=== PATIENT | female | born 1940 | race Caucasian/White ===

== ENCOUNTER → 2022-05-06 10:38 | Outpatient (BNVA) | payer MEDICARE, MEDICAID, SELFPAY | PROVIDERS: Family Provider Nurse Practitioner Family; PCP Registered Nurse; Visit Provider Registered Nurse | DX: E03.9 Hypothyroidism, unspecified (principal); N81.10 Cystocele, unspecified | CPT/HCPCS: 80053; 84443; 85025 ==

== ENCOUNTER 2022-09-01 10:52 | Day surgery (SDC) | payer MEDICARE, SELFPAY ==
--- NOTE | 2022-08-28 13:32 | ECG_ITS ---
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 Measurements Intervals Ferguson Rate: 71 P: 38 AR: 157 QRS: -17 QRSD: 76 T: 57 QT: 371 QTc: 405 Interpretive Statements SINUS RHYTHM Compared to ECG 08/04/2018 10:46:59 T-wave abnormality no longer present Electronically Signed On 08-28-2022 22:19:11 [employer] by Korin Abebe M.D. [id number]
[2022-08-28 13:44] LABS: Basophils % 0.5 %; Eosinophils # 0.1 10^3/uL (0.0-0.8); Eosinophils % 1.1 %; Hematocrit 42.8 % (37.0-47.0); Hemoglobin 13.9 g/dL (11.5-15.3); Lymphocytes # 1.4 10^3/uL (0.8-4.8); Lymphocytes % 24.4 %; Mean Corpuscular HGB Conc 32.5 g/dL (30.0-36.0); Mean Corpuscular Hemoglobin 29.2 pg (28.0-34.0); Mean Corpuscular Volume 89.9 fl (81-99); Mean Platelet Volume 10.3 fL (7.4-10.4); Monocytes # 0.5 10^3/uL (0.2-0.9); Monocytes % 7.9 %; Neutrophils # 3.75 10^3/uL (1.8-7.7); Neutrophils % 65.9 %; Nucleated Red Blood Cells % 0 %; Platelet Count 254 10^3/cmm (130-400); Red Blood Count 4.76 10^6/uL (4.1-5.3); Red Cell Distribution Width 13.2 % (12.1-15.1); White Blood Count 5.7 10^3/uL (4.0-10.0)
--- NOTE | 2022-08-28 13:47 | ANES.PREANE2 ---
Pre-Anesthetic Assessment Height/Weight: Height 1.45 m Weight 61.235 kg Preop Diagnosis: uterovaginal prolapse, bladder prolapse Operation Date: 09/01/22 12:55 Proposed Procedures p Colpocliesis 51284, Sling 65400, Perineorrhaphy 92446 N81.3 Laparoscopic assisted vaginal hysterectomy and bilateral salpingo-oophorectomy 42621(Not Applicable) - Eilzabeth Stuart MD s Sling(Not Applicable) - Elizabeth Stuart MD s Perineorrhaphy(Not Applicable) - Elizabeth Stuart MD s Laparoscopic assisted vaginal hysterectomy and bilateral salpingo-oophorectomy 58533(Not Applicable) - Elizabeth Stuart MD Familial anesthetic complications: None Social No alcohol and No tobacco Exam alert, oriented x 3, clear to auscultation bilaterally and regular rate & rhythm Airway Mallampati: Class II Dentition: false Pulmonary None reported CV/HEM None reported None reported Hepatic None reported GI None reported Metabolic Thyroid Disease Musc/skel None reported Neuropsych None reported Anesthetic Plan ASA status: 2 Anesthesia: General Risk of > 500 ml blood loss (7ml/kg in children): No Medications/Allergies Home Medications Medication Instructions Recorded Confirmed Last Taken Type zinc sulfate 50 mg zinc (220 mg) 50 mg PO DAILY PRN Cold Symptoms 07/06/22 08/28/22 Unknown History capsule levothyroxine 25 mcg capsule 25 mcg PO DAILY 08/27/22 08/28/22 08/28/22 History Allergies Allergy/AdvReac Type Severity Reaction Status Date / Time No Known Allergies Allergy Verified 08/27/22 14:02 [facility] Anesthesia Medical History Hypothyroidism Surgical History History of left hip replacement 2019 Family History Mother Hypertension Sister Hypertension Denies family history of Colon cancer Ovarian cancer Diabetes Heart disease Hypercholesteremia Breast cancer Uterine cancer Thyroid disease Stroke Data Anesthesia 08/28/22 13:30 08/28/22 13:30 Short CBC 08/28/22 Range/Units 13:30 WBC 5.7 (4.0-10.0) 10^3/uL Hgb 13.9 (11.5-15.3) g/dL Hct 42.8 (37.0-47.0) % MCV 89.9 (81-99) fl Plt Count 254 (130-400) 10^3/cmm Neut % (Auto) 65.9 % Neut # (Auto) 3.75 (1.8-7.7) 10^3/uL Cardiac Studies: No Data to Display
[2022-08-28 14:00] LABS: Blood Urea Nitrogen 16 mg/dL (8-23); Calcium 9.4 mg/dL (8.5-10.5); Carbon Dioxide 28 mmol/L (22-29); Chloride 101 mmol/L (98-107); Creatinine Clr Calc Pharmacy 52.4112; Glucose 110 mg/dL (65-115); Osmolality Calculated 288 mOsm/kg (285-295); Sodium 138 mmol/L (136-145)
[2022-09-01 11:07] VITALS: BP 115/59; PULSE 86; TEMP 36.3; O2SAT 96
[2022-09-01] MEDS: sodium chloride 0.9% 1,000 ML 30 ML IV (11:30)
[2022-09-01] MEDS: gabapentin 300 mg Capsule PO (11:31)
[2022-09-01] MEDS: CELEcoxib 200 mg Capsule 400 MG PO (11:31)
[2022-09-01] MEDS: acetaminophen 1,000 MG/100 ML PIGGYBACK 400 MG IV (11:31)
[2022-09-01] MEDS: scopolamine 1.5 Patch 1 PATCH TRANSDERMA (11:31)
[2022-09-01] MEDS: phenazopyridine 100 mg Tablet 200 MG PO (11:32)
--- NOTE | 2022-09-01 14:02 | W.PM.OPSUD ---
Surgery/Procedure H&P Update DATE OF PROCEDURE: September 01, 2022 DATE H&P PERFORMED: 08/27/22 H&P UPDATE INFORMATION: I have reviewed H&P completed within last 30 days, I have examined patient prior to procedure and Changes to prior documentation as noted here CHANGES TO PREVIOUS DOCUMENTATION: Planned procedure is Vaginal hysterectomy, if possible. PREOP DIAGNOSIS: uterovaginal prolapse, bladder prolapse PLANNED PROCEDURE: Operation Date: 09/01/22 12:35 Proposed Procedures p Colpocliesis 56323, Sling 99342, Perineorrhaphy 95456 N81.3 Laparoscopic assisted vaginal hysterectomy and bilateral salpingo-oophorectomy 27900(Not Applicable) - Elizabeth Stuart MD s Sling(Not Applicable) - Elizabeth Stuart MD s Perineorrhaphy(Not Applicable) - Elizabeth Stuart MD s Laparoscopic assisted vaginal hysterectomy and bilateral salpingo-oophorectomy 97925(Not Applicable) - Elizabeth Stuart MD Related Problem List Diagnoses (1) Uterovaginal prolapse, complete: (2) Bladder prolapse, female, acquired:
--- NOTE | 2022-09-01 14:19 | P.ANESUD_ITS ---
Pre-Anesthetic Update Pre-Anesthetic Assessment: Date of Surgery/Procedure: 09/01/22 Preop Leti gnosis: uterovaginal prolapse, bladder prolapse Proposed Procedure: Operation Date: 09/01/22 12:35 Proposed Procedures p Colpocliesis 34969, Sling 85909, Perineorrhaphy 08951 N81.3 Laparoscopic assisted vaginal hysterectomy and bilateral salpingo-oophorectomy 77821(Not Applicable) - Elizabeth Stuart MD s Sling(Not Applicable) - Elizabeth Stuart MD s Perineorrhaphy(Not Applicable) - Elizabeth Stuart MD s Laparoscopic assisted vaginal hysterectomy and bilateral salpingo-oophorectomy 24240(Not Applicable) - Elizabeth Stuart MD Any changes to Pre-Anesthetic Assessment?: No Last Intake: Intake Last Liquid Date 08/31/22 Last Liquid Time 18:00 Last Solid Date 08/31/22 Last Solid Time 18:00 Vitals: Temperature 97.3 F L 09/01/22 11:07 Temperature Source Temporal Artery S can 09/01/22 11:07 Pulse Rate 86 09/01/22 11:07 Blood Pressure 115/59 09/01/22 11:07 Blood Pressure Santa n 77 09/01/22 11:07 Pulse Oximetry 96 09/01/22 11:07 Oxygen Delivery Me thod 09/01/22 11:07 Exam: Pre-Anes Outpt Exam: alert, oriented x 3, clear to auscultation bilaterally and regular rate & rhythm Cardiac Studies: No Data to Display
--- NOTE | 2022-09-03 10:00 | PM.OP ---
Operative Report Date of procedure: September 03, 2022 Pre-op diagnosis: Preop Diagnosis uterovaginal prolapse, bladder prolapse Procedure: procedure needed to be rescheduled due to another patient returning to the operating room. I will have our office reschedule her
== END 2022-09-01 15:38 | disposition home or self-care (01) ==
LOC: OR 10:54
PROVIDERS: PCP Registered Nurse; Visit Provider Obstetrics & Gynecology
PROC: (CPT 57120; principal; 2022-09-01 12:25)
PROC: (CPT 57288; 2022-09-01 12:25)
PROC: 0HQ9XZZ Repair Perineum Skin, External Approach (ICD-10-PCS; 2022-09-01 12:25)
PROC: 0UT9FZZ Resection of Uterus, Via Natural or Artificial Opening With Percutaneous Endoscopic Assistance (ICD-10-PCS; 2022-09-01 12:25)
DX: N81.3 Complete uterovaginal prolapse (principal); Z53.8 Procedure and treatment not carried out for other reasons; E03.9 Hypothyroidism, unspecified
CPT/HCPCS: 36415; 80048; 85025; 86850; 86900; 93005; J0131; J1100; J1885; J2405; J2704; J2710; J3010; J3490; J7030

== ENCOUNTER 2022-09-29 10:10 | Observation (INO) | payer MEDICARE, SELFPAY ==
[2022-09-25 09:09] VITALS: BMI 29.2
--- NOTE | 2022-09-25 09:29 | ANES.PREANE2 ---
Pre-Anesthetic Assessment Height/Weight: Height 1.45 m Weight 61.235 kg Preop Diagnosis: uterovaginal prolapse Operation Date: 09/29/22 09:00 Proposed Procedures p Laparoscopic assisted vaginal hysterectomy and bilateral salpingo-oophorectomy 16355,N81.3(Not Applicable) - Elizabeth Stuart MD s Laparoscopic Salpingo Oophorectomy(Bilateral) - Elizabeth Stuart MD s [Colpocliesis 97220,(Not Applicable) - Elizabeth Stuart MD p Sling 45424(Not Applicable) - Elizabeth Stuart MD s Perineorrhaphy 25022(Not Applicable) - Elizabeth Stuart MD Familial anesthetic complications: None Social No alcohol and No tobacco Exam alert, oriented x 3, clear to auscultation bilaterally and regular rate & rhythm Airway Mallampati: Class I Dentition: false and partials Pulmonary None reported CV/HEM None reported None reported Hepatic None reported GI None reported Metabolic Thyroid Disease Musc/skel Lower Back Pain and Osteoarthritis/DJD Neuropsych None reported Anesthetic Plan ASA status: 2 Anesthesia: General Risk of > 500 ml blood loss (7ml/kg in children): No Medications/Allergies Home Medications Medication Instructions Recorded Confirmed Last Taken Type levothyroxine 25 mcg capsule 25 mcg PO DAILY 08/27/22 09/25/22 09/25/22 History Allergies Allergy/AdvReac Type Severity Reaction Status Date / Time No Known Allergies Allergy Verified 09/25/22 07:56 [facility] Anesthesia Medical History Hypothyroidism Surgical History History of left hip replacement 2019 Family History Mother Hypertension Sister Hypertension Denies family history of Colon cancer Ovarian cancer Diabetes Heart disease Hypercholesteremia Breast cancer Uterine cancer Thyroid disease Stroke Data Anesthesia Cardiac Studies: No Data to Display
[2022-09-25 10:23] LABS: Basophils % 0.7 %; Eosinophils # 0.1 10^3/uL (0.0-0.8); Eosinophils % 2.1 %; Hematocrit 43.7 % (37.0-47.0); Hemoglobin 14.1 g/dL (11.5-15.3); Lymphocytes # 1.1 10^3/uL (0.8-4.8); Mean Corpuscular HGB Conc 32.3 g/dL (30.0-36.0); Mean Corpuscular Volume 89.7 fl (81-99); Mean Platelet Volume 10.6 fL (7.4-10.4); Monocytes # 0.6 10^3/uL (0.2-0.9); Monocytes % 9.9 %; Neutrophils # 3.79 10^3/uL (1.8-7.7); Neutrophils % 66.9 %; Nucleated Red Blood Cells % 0 %; Platelet Count 262 10^3/cmm (130-400); Red Blood Count 4.87 10^6/uL (4.1-5.3); Red Cell Distribution Width 13.2 % (12.1-15.1); White Blood Count 5.7 10^3/uL (4.0-10.0)
[2022-09-25 10:38] LABS: Anion Gap 13.1 (5-19); Blood Urea Nitrogen 13 mg/dL (8-23); Calcium 9.4 mg/dL (8.5-10.5); Carbon Dioxide 30 mmol/L (22-29); Chloride 100 mmol/L (98-107); Creatinine Clr Calc Pharmacy 52.4112; Glucose 97 mg/dL (65-115); Osmolality Calculated 288 mOsm/kg (285-295); Potassium 4.1 mmol/L (3.5-5.1); Sodium 139 mmol/L (136-145)
[2022-09-29] VITALS (14 sets, daily range): BP systolic 117–144; BP diastolic 62–83; PULSE 57–91; RESP 12–18; TEMP 36.1–36.6; O2SAT 90–99
[2022-09-29] MEDS: sodium chloride 0.9% 1,000 ML 30 ML IV (06:25)
[2022-09-29] MEDS: acetaminophen 1,000 MG/100 ML PIGGYBACK 400 MG IV (06:25)
[2022-09-29] MEDS: scopolamine 1.5 Patch 1 PATCH TRANSDERMA (06:39)
[2022-09-29] MEDS: CELEcoxib 200 mg Capsule 400 MG PO (06:40)
[2022-09-29] MEDS: gabapentin 300 mg Capsule PO (06:40)
[2022-09-29] MEDS: phenazopyridine 100 mg Tablet 200 MG PO (06:42)
--- NOTE | 2022-09-29 06:47 | P.ANESUD_ITS ---
Pre-Anesthetic Update Pre-Anesthetic Assessment: Date of Surgery/Procedure: 09/29/22 Preop Leti gnosis: uterovaginal prolapse Proposed Procedure: Operation Date: 09/29/22 07:00 Proposed Procedures p Laparoscopic assisted vaginal hysterectomy and bilateral salpingo-oophorectomy 70243,N81.3(Not Applicable) - Elizabeth Stuart MD s Laparoscopic Salpingo Oophorectomy(Bilateral) - Elizabeth Stuart MD s [Colpocliesis 91978,(Not Applicable) - Elizabeth Stuart MD p Sling 24471(Not Applicable) - Elizabeth Stuart MD s Perineorrhaphy 74618(Not Applicable) - Elizabeth Stuart MD Any changes to Pre-Anesthetic Assessment?: No Last Intake: 8 hrs Labs Last 48hrs: Short CBC 09/25/22 Range/Units 09:15 WBC 5.7 (4.0-10.0) 10^3/ uL Hgb 14.1 (11.5-15.3) g/dL Hct 43.7 (37.0-47.0) % MCV 89.7 (81-99) fl Plt Count 262 (130-400) 10^3/c mm Neut % (Auto) 66.9 % Neut # (Auto) 3.79 (1.8-7.7) 10^3/u L BMP 09/25/22 09:15 Sodium 139 Potassium 4.1 Chloride 100 Carbon Dioxide 30 H BUN 13 Creatinine 0.8 Glucose 97 Calcium 9.4 Vitals: Temperature 97.0 F L 09/29/22 06:21 Temperature Source Temporal Artery S can 09/29/22 06:21 Pulse Rate 91 09/29/22 06:21 Respiratory Rate 18 09/29/22 06:21 Blood Pressure 141/68 09/29/22 06:21 Blood Pressure Santa n 92 09/29/22 06:21 Pulse Oximetry 95 09/29/22 06:21 Oxygen Delivery Me thod 09/29/22 06:22 Exam: Pre-Anes Outpt Exam: alert, oriented x 3, clear to auscultation bilaterally and regular rate & rhythm Cardiac Studies: No Data to Display
--- NOTE | 2022-09-29 07:04 | W.PM.OPSUD ---
Surgery/Procedure H&P Update DATE OF PROCEDURE: September 29, 2022 DATE H&P PERFORMED: 09/25/22 H&P UPDATE INFORMATION: I have reviewed H&P completed within last 30 days, I have examined patient prior to procedure and No changes to prior documentation PREOP DIAGNOSIS: uterovaginal prolapse PLANNED PROCEDURE: Operation Date: 09/29/22 07:00 Proposed Procedures p Laparoscopic assisted vaginal hysterectomy and bilateral salpingo-oophorectomy 69317,N81.3(Not Applicable) - Elizabeth Stuart MD s Laparoscopic Salpingo Oophorectomy(Bilateral) - Elizabeth Stuart MD s [Colpocliesis 65458,(Not Applicable) - Elizabeth Stuart MD p Sling 87491(Not Applicable) - Elizabeth Stuart MD s Perineorrhaphy 41937(Not Applicable) - Elizabeth Stuart MD Related Problem List Diagnoses (1) Uterovaginal prolapse, complete: (2) Bladder prolapse, female, acquired:
[2022-09-29] MEDS: ceFAZolin 2,000 MG in sodium chloride 0.9% (plus) 50 ML 100 MG IV ×2 (07:05→17:34)
[2022-09-29] MEDS: vasopressin 20 unit/mL INJ INJECTION (07:50)
--- NOTE | 2022-09-29 10:13 | PM.OP ---
Operative Report Date of procedure: September 29, 2022 Pre-op diagnosis: Preop Diagnosis uterovaginal prolapse Post-op diagnosis: same Post-op findings: resolution of the uterovaginal prolapse Procedure done: TVH, BSO, colpocleisis, perineorrhaphy Specimens removed/disposition: uterus, tubes, ovaries to pathology Surgeon: Elizabeth Stuart Anesthesia: General Estimated blood loss (mL): 50 IV fluids (mL): 1,400 Urine output (mL): 1,000 Complications: none Findings: complete procidencia Condition: stable Disposition: PACU Procedure: The patient was taken to the operating room where general anesthesia was administered and found to be adequate. She was prepped and draped in the normal sterile fashion in the dorsal lithotomy position in [facility]. A Yan catheter was placed. A weighted speculum was placed into the vagina and the anterior and posterior lip of the cervix was grasped with a Taylor tenaculum. 10 mL of dilute Pitressin was injected at the vesicovaginal junction. A circumferential incision was made at the vesicovaginal junction and the vaginal mucosa reflected cephalad. The posterior peritoneum was entered sharply with the Metzenbaum scissors and the long weighted speculum replaced. Using the Hamida clamps the uterosacral ligaments were clamped cut and suture-ligated. Then sequentially the uterine arteries and cardinal ligaments were clamped cut and suture-ligated. The uterus was delivered. The utero-ovarian ligaments were clamped cut and suture-ligated bilaterally and the specimen was removed. The infundibulopelvic ligament was clamped, cut and suture ligated bilaterally. The peritoneum was closed with a pursestring using 2-0 Vicryl. The vaginal cuff was closed with 0 Vicryl in a running locked pattern incorporating the uterosacral ligaments into the lateral aspects of the vaginal cuff. The Yan catheter was removed and the cystoscope advanced into the bladder. The patient was given pyridium in preop and bilateral spill was noted. There were no injuries or deficits noted in the bladder. The cystoscope was removed and the Yan was replaced. Attention was then turned to the colpocliesis portion. A square was marked on the anterior and posterior. Using a 15 blade knife, an incision was made posteriorly and the vaginal tissue elevated. The rectum was resected off of the vaginal mucosa. The incision was continued around the previously marked area resecting the rectum as I went, until the vaginal mucosa was removed. Attention was then turned anteriorly. In the same fashion, the vaginal mucosa was removed after the bladder was resected away from it. The anterior and posterior tissues were then reapproximated, anterior to posterior on both sides, forming vaginal gutters. Then, the proximal edge of the vaginal cuff were reapproximated, anterior to posterior, in interrupted sutures. Finally, the distal vaginal tissue was brought anterior to posterior in interrupted sutures, securing the vagina inside. Attention was then turned to the perineorrhphy. Allis clamps were placed on the posterior fourchette. A 3 cm wedge of the fourchette was removed. This was repaired in the usual fashion with O-vicryl. Vaginal packing was placed. The patient tolerated the procedure well. Sponge, lap and needle counts were correct times three. She was taken to the recovery room in stable condition.
[2022-09-29] MEDS: ketorolac 30 mg/mL INJ IVP ×3 (11:25→23:50)
[2022-09-29] MEDS: dextrose 5%-lactated ringers 1,000 ML 125 ML IV ×2 (11:26→23:50)
--- NOTE | 2022-09-29 14:21 | ANE.PACU2 ---
Inpatient post-anesthesia follow up: Airway intact: Yes Vital signs: Temperature 97.7 F Pulse Rate 57 Respiratory Rate 13 Blood Pressure 127/70 Pulse Oximetry 91 Oxygen Delivery Me thod Nasal Cannula Oxygen Flow Rate 8 Fraction of Inspir ed Oxygen Hydration adequate: Yes Nausea and vomiting: No Pain level: 3 Mental status: Baseline
[2022-09-29] MEDS: ondansetron 2 mg/ML SDV 2 mL 4 MG IVP (17:34)
[2022-09-30] MEDS: ceFAZolin 2,000 MG in sodium chloride 0.9% (plus) 50 ML 100 MG IV (02:44)
[2022-09-30 05:37] LABS: Hematocrit 34.9 % (37.0-47.0); Hemoglobin 11.3 g/dL (11.5-15.3); Mean Corpuscular HGB Conc 32.4 g/dL (30.0-36.0); Mean Corpuscular Hemoglobin 28.9 pg (28.0-34.0); Mean Corpuscular Volume 89.3 fl (81-99); Mean Platelet Volume 10.2 fL (7.4-10.4); Platelet Count 218 10^3/cmm (130-400); Red Blood Count 3.91 10^6/uL (4.1-5.3); Red Cell Distribution Width 13.3 % (12.1-15.1); White Blood Count 12.3 10^3/uL (4.0-10.0)
[2022-09-30 06:09] VITALS: BP 121/82; PULSE 65; RESP 14; TEMP 36.7; O2SAT 94
--- NOTE | 2022-09-30 07:15 | P.DS_ITS ---
Discharge Providers Date of Admission: 09/29/22 10:10 Date of Discharge: September 30, 2022 Attending Provider at Admission: Elizabeth Stuart MD Attending Provider at Discharge: Elizabeth Stuart MD Primary Care Provider: JOSE Marr Diagnoses at Discharge Discharge Diagnosis (1) Uterovaginal prolapse, complete: Status: Acute (2) Bladder prolapse, female, acquired: Status: Acute Reason for Visit Reason for Visit: complete uterovaginal prolapse Hospital Course Hospital Course The patient was admitted for surgery. She did well postoperatively and was ready for discharge on day #1 Physical Exam Narrative: The patient is doing well this morning. She has been up walking. Her catheter has been removed. She is tolerating a regular diet. Pain is well controlled. Const: COMMON NORMALS: no acute distress, average body habitus, patient oriented x3, no limitations, healthy appearing, alert and well nourished GENERAL APPEARANCE: cooperative, comfortable, well kempt and well developed ORIENTATION/CONSCIOUSNESS: Yes awake, Yes oriented to person, Yes oriented to place and Yes oriented to time Resp: COMMON NORMALS: normal respiratory effort EFFORT & INSPECTION: Yes able to speak in complete sentences GI: COMMON NORMALS: Soft to palpation and non-tender PALPATION: Yes Soft to palpation Extremity: COMMON NORMALS: no calf tenderness Neuro: COMMON NORMALS: patient oriented x3 SENSORIUM/ORIENTATION: Yes alert, Yes oriented to person, Yes oriented to place and Yes oriented to time Psych: APPEARANCE: Yes well kempt Urinary Catheter Management: Yan: Cath Placed During This Visit: yes, but has since been removed by the nurse Reason for Continuing Indwelling Catheter: Decision to DC Catheter Urinary Catheter Date of Insertion: 09/29/22 Urinary Catheter Time of Insertion: 07:35 Date Urinary Catheter Removed: 09/30/22 Time Urinary Catheter Discontinued: 05:18 Discharge Data Studies Completed and Pending Pending at discharge Category Date Time Status Urine Culture Routine Lab 09/29/22 07:39 Received Pathology: Surgical [PTH] Routine Pth 09/29/22 08:22 Received Laboratory Results WBC 12.3 10^3/uL (4.0-10.0) H 09/30/22 05:18 RBC 3.91 10^6/uL (4.1-5.3) L 09/30/22 05:18 Hgb 11.3 g/dL (11.5-15.3) L 09/30/22 05:18 Hct 34.9 % (37.0-47.0) L 09/30/22 05:18 MCV 89.3 fl (81-99) 09/30/22 05:18 MCH 28.9 pg (28.0-34.0) 09/30/22 05:18 MCHC 32.4 g/dL (30.0-36.0) 09/30/22 05:18 RDW 13.3 % (12.1-15.1) 09/30/22 05:18 Plt Count 218 10^3/cmm (130-400) 09/30/22 05:18 MPV 10.2 fL (7.4-10.4) 09/30/22 05:18 Neut % (Auto) 66.9 % 09/25/22 09:15 Lymph % (Auto) 20.0 % 09/25/22 09:15 Gillespie % (Auto) 9.9 % 09/25/22 09:15 Eos % (Auto) 2.1 % 09/25/22 09:15 Baso % (Auto) 0.7 % 09/25/22 09:15 Neut # (Auto) 3.79 10^3/uL (1.8-7.7) 09/25/22 09:15 Lymph # (Auto) 1.1 10^3/uL (0.8-4.8) 09/25/22 09:15 Gillespie # (Auto) 0.6 10^3/uL (0.2-0.9) 09/25/22 09:15 Eos # (Auto) 0.1 10^3/uL (0.0-0.8) 09/25/22 09:15 Baso # (Auto) 0.0 10^3/uL (0.0-0.1) 09/25/22 09:15 Nucleated RBC % (auto) 0 % 09/25/22 09:15 Nucleated RBCs # 0.0 /100WBC 09/25/22 09:15 Sodium 139 mmol/L (136-145) 09/25/22 09:15 Potassium 4.1 mmol/L (3.5-5.1) 09/25/22 09:15 Chloride 100 mmol/L (98-107) 09/25/22 09:15 Carbon Dioxide 30 mmol/L (22-29) H 09/25/22 09:15 Anion Gap 13.1 (5-19) 09/25/22 09:15 BUN 13 mg/dL (8-23) 09/25/22 09:15 Creatinine 0.8 mg/dL (0.5-0.9) 09/25/22 09:15 GFR Calculation Not Reportable 09/25/22 09:15 Glucose 97 mg/dL (65-115) 09/25/22 09:15 Calculated Osmolality 288 mOsm/kg (285-295) 09/25/22 09:15 Calcium 9.4 mg/dL (8.5-10.5) 09/25/22 09:15 Blood Type O Negative 09/29/22 06:27 Rho(D) Type Negative 09/29/22 06:27 Antibody Screen Negative 09/29/22 06:27 Vitals Last Vital Signs Temp 98.0 F 09/30/22 06:09 Pulse 65 09/30/22 06:09 Resp 14 09/30/22 06:09 BP 121/82 09/30/22 06:09 Pulse Ox 94 09/30/22 06:09 O2 Del Method 09/30/22 06:09 O2 Flow Rate 1 09/29/22 14:11 Discharge Plan Discharge Patient Disposition: Home Condition: Stable Prescriptions: New docusate sodium 100 mg Capsule 100 mg PO BID Qty: 60 0RF ibuprofen 800 mg Tablet 800 mg PO Q8H Qty: 30 0RF hydrocodone-acetaminophen 5-325 mg Tablet 1 tab PO Q6H PRN (Reason: Moderate To Severe Pain) Qty: 30 0RF Continued levothyroxine 25 mcg capsule 25 mcg PO DAILY Discharge Orders: Discharge Order (Routine); Ordered 09/30/22 Ordered By: Elizabeth Stuart Patient Instructions: Opioid Safety Discharge Attestations Time Spent in Discharge Care*: less than 30 min Quality Metrics Clinical Quality Measures [ No reported AMI, CVA or VTE this stay] Coding Level of Care Code Acute Code for Chg Fwd Diagnoses Uterovaginal prolapse, complete N81.3 Bladder prolapse, female, acquired N81.10
[2022-09-30] MEDS: docusate sodium 100 mg Capsule PO (09:41)
[2022-09-30] MEDS: levothyroxine 25 mcg Tablet PO (09:41)
[2022-09-30 10:00] VITALS: BP 111/69; PULSE 88; RESP 16; TEMP 36.9; O2SAT 93
== END 2022-09-30 10:13 | disposition home or self-care (01) ==
LOC: OBGYN 10:10
PROVIDERS: Admitting Provider Obstetrics & Gynecology; PCP Registered Nurse; Visit Provider Obstetrics & Gynecology
PROC: (CPT 58661; 2022-09-29 07:00)
PROC: (CPT 57120; 2022-09-29 07:00)
PROC: 0HQ9XZZ Repair Perineum Skin, External Approach (ICD-10-PCS; CPT 12002; 2022-09-29 07:00)
PROC: (CPT 12002; 2022-09-29 07:00)
DX: N81.3 Complete uterovaginal prolapse (principal); N81.10 Cystocele, unspecified; E03.9 Hypothyroidism, unspecified
CPT/HCPCS: 12002; 57120; 58262; 36415; 80048; 85025; 85027; 86850; 86900; 87077; 87086; 87186; 88305; 96374; 96376; G0378; J0131; J0690; J1100; J1170; J1885; J1940; J2405; J2704; J3010; J3490; J7030; J7121

== ENCOUNTER → 2023-07-01 13:14 | Outpatient (BNVA) | payer MEDICARE, SELFPAY | PROVIDERS: PCP Registered Nurse; Visit Provider Registered Nurse | DX: E03.9 Hypothyroidism, unspecified (principal) | CPT/HCPCS: 84443 ==

== ENCOUNTER → 2023-11-08 13:08 | Outpatient (BNVA) | payer MEDICARE, SELFPAY | PROVIDERS: PCP Registered Nurse; Visit Provider Registered Nurse | DX: E03.9 Hypothyroidism, unspecified (principal) | CPT/HCPCS: 84443 ==

== ENCOUNTER → 2024-10-16 07:41 | Outpatient (BNVA) | payer MEDICARE, SELFPAY | PROVIDERS: PCP Registered Nurse; Visit Provider Registered Nurse | DX: E03.9 Hypothyroidism, unspecified (principal) | CPT/HCPCS: 80053; 84443; 85025 ==